=== PATIENT | female | born 1950 | race Two or more races ===

== ENCOUNTER 2017-08-01 11:34 | Day surgery (SDC) | payer MEDICARE, OTHER ==
[2017-08-01] MEDS ORDERED: PROPOFOL 20 ML (12:37)
[2017-08-01] MEDS ORDERED: LIDOCAINE 2% (SDV) 5 ML INJ (12:37)
== END 2017-08-01 14:55 | disposition home or self-care (01) ==
LOC: GIL 11:34
DX: K44.9 Diaphragmatic hernia without obstruction or gangrene (principal); K29.70 Gastritis, unspecified, without bleeding; I10 Essential (primary) hypertension; E78.5 Hyperlipidemia, unspecified; F17.200 Nicotine dependence, unspecified, uncomplicated
CPT/HCPCS: 43239; 88305; 88312